=== PATIENT | male | born 1950 | race Caucasian/White ===

== ENCOUNTER → 2016-12-10 | Outpatient (REF) ==
[~2016-12-10] MED LIST: AMOXICILLIN 50500 MG PO; FERROUS SU325 MG/TAB PO; FOLIC ACID PO; VITAMIN C500 MG PO
== END ==
LOC: ZLAB.WCH 14:43
DX: Z01.89 Encounter for other specified special examinations (principal)
CPT/HCPCS: G0103

== ENCOUNTER → 2016-12-17 | Outpatient (REF) | LOC: ZLAB.WCH 14:51 | DX: Z01.89 Encounter for other specified special examinations (principal) ==

== ENCOUNTER → 2018-02-04 | Outpatient (REF) | LOC: ZLAB.WCH 17:54 | DX: Z01.89 Encounter for other specified special examinations (principal) | CPT/HCPCS: G0103 ==

== ENCOUNTER → 2019-04-27 | Outpatient (REF) | LOC: ZLAB.WCH 09:31 | DX: Z01.89 Encounter for other specified special examinations (principal) ==